=== PATIENT | male | born 1955 | race Caucasian/White ===

== ENCOUNTER 2021-04-14 10:20 | Day surgery (SDC) | payer BC, MEDICARE ==
[~2021-04-14 10:20] MED LIST: Metoclopramide 10 MG/2 ML SDV IV PRN; Sodium Chloride 0.9% 1,000 ML IV SCH
[2021-04-14] MEDS ORDERED: Propofol 200 MG/20 ML SDV ONE (12:45)
--- NOTE | 2021-04-14 15:01 | OR ---
DATE OF OPERATION: 04/14/2021 SURGEON: Al Roach MD PREOPERATIVE DIAGNOSIS: Screening colonoscopy. POSTOPERATIVE DIAGNOSIS: Screening colonoscopy. PROCEDURE: Colonoscopy. ANESTHESIA: MAC. ESTIMATED BLOOD LOSS: None. COMPLICATIONS: None. INDICATION FOR THE PROCEDURE: The patient is a 65-year-old male who last had a colonoscopy about 15 years ago, was normal per patient. Denies any change in bowel habits. He is here today for a repeat screening colonoscopy. DESCRIPTION OF PROCEDURE: Informed consent was obtained from the patient. the patient was taken to the operating room, placed on table in left lateral decubitus position. Monitored anesthesia care was administered. Digital rectal exam was performed, it was normal. Colonoscope was then advanced through the anus, directed towards the cecum. Cecum was reached and identified by appendiceal orifice and ileocecal valve. Colonoscope was then slowly withdrawn. No masses. No polyps. No areas of ischemia or inflammation identified. Rectum was also otherwise unremarkable. Colonoscope was then withdrawn. FINDINGS: Normal colonoscopy. RECOMMENDATIONS: We would recommend repeat screening colonoscopy in 10 years. MIHAELA /[id number]
== END 2021-04-14 13:45 | disposition home or self-care (01) ==
LOC: LB.SDS 10:20
PROVIDERS: ATTEND Surgery
DX: Z12.11 Encounter for screening for malignant neoplasm of colon (principal); E78.00 Pure hypercholesterolemia, unspecified; K21.9 Gastro-esophageal reflux disease without esophagitis; Z88.8 Allergy status to other drugs, medicaments and biological substances
CPT/HCPCS: 45378; J2704; J7030